=== PATIENT | female | born 1950 | race Caucasian/White ===

== ENCOUNTER 2023-05-25 11:34 | Outpatient (REF) | payer MEDICARE, BC, SELFPAY ==
[2023-05-26 21:44] LABS: HSV 1 DNA Result Negative (Negative); HSV 2 DNA Result Negative (Negative); Varicella Zoster DNA Result Negative ((See Note))
== END 2023-05-25 11:35 | disposition home or self-care (01) ==
LOC: LBN 11:34
PROVIDERS: Visit Provider Nurse Practitioner Family
DX: R21 Rash and other nonspecific skin eruption (principal); Z11.59 Encounter for screening for other viral diseases
CPT/HCPCS: 87529; 87798